=== PATIENT | male | born 1990 | race Caucasian/White ===

== ENCOUNTER 2018-06-24 10:24 | Emergency (ER) | payer OTHER, SELFPAY ==
[2018-06-24 10:25] VITALS: BP 160/101; PULSE 79; RESP 17; TEMP 36.3; O2SAT 100; BMI 25.0
--- NOTE | 2018-06-24 10:45 | EKG12_ITS ---
Test Reason : MEDICAL CLEARANCE Blood Pressure : / mmHG Vent. Rate : 079 BPM Atrial Rate : 079 BPM P-R Int : 150 ms QRS Dur : 098 ms QT Int : 396 ms P-R-T Axes : 059 052 035 degrees QTc Int : 454 ms Normal sinus rhythm with sinus arrhythmia Normal ECG Confirmed by ELVIA ARDON, DELROY ([id number]), makeup editor VALENTÍN CASAREZ ([id number] on 06/29/2018 9:02:48 AM Referred By: AVANI Confirmed By:DELROY GAN MD
--- NOTE | 2018-06-24 10:46 | ED.VISSUMM ---
- ER Visit Summary Date of Service: 06/24/18 Chief Complaint: Manic episode History of Present Illness: The patient is a 28 M who presents from the [facility] center for medical clearance for acute bo. Patient was pink slipped by the crisis counselor Josefa due to bo. Patient has a history of bipolar disorder and recently came off of a depressive episode, now displaying manic traits including flights of idea and hyperattentiveness, agitation. History from patient is limited secondary to him cooperating with history. Physical Examination: Patient is hypertensive, normal heart rate, afebrile, no hypoxia on room air. Awake and alert, hyperattentive and glaring at me. Will not respond appropriately to questions and instead is attempting to interrogate me. Patient has no respiratory distress and is ambulating without difficulty. Physical exam limited secondary to concern for personal safety close to this patient. Test Results: Abnormal Lab Results 06/24/18 06/24/18 06/24/18 11:05 11:05 11:05 WBC 8.2 RBC 4.79 Hgb 14.1 Hct 44.0 MCV 91.9 MCH 29.4 MCHC 32.0 RDW 13.1 RDW Differential 43.5 Plt Count 283 MPV 9.6 Immature Gran % (Auto) 0.100 Neut % (Auto) 64.1 Lymph % (Auto) 26.0 Mingo % (Auto) 8.3 Eos % (Auto) 1.3 Baso % (Auto) 0.2 Absolute Neuts (auto) 5.3 Absolute Lymphs (auto) 2.14 Total Counted Not Reportable Sodium 137 Potassium 3.8 Chloride 102 Carbon Dioxide 26.0 Anion Gap 9 BUN 9 Creatinine 0.93 Estim Creat Clear Calc 133.64 Est GFR (MDRD) Af Amer 125 Est GFR (MDRD) Non-Af 103 BUN/Creatinine Ratio 9.7 L Glucose 98 Calcium 9.2 Total Bilirubin 0.60 AST 20 ALT 26 Alkaline Phosphatase 123 H Total Protein 8.5 H Albumin 4.6 Globulin 3.9 Albumin/Globulin Ratio 1.2 Urine Opiates Screen Urine Methadone Screen Ur Barbiturates Screen Ur Phencyclidine Scrn Ur Amphetamines Screen U Methamphetamin-MDMA U Benzodiazepines Scrn Urine Cocaine Screen U Cannabinoids Screen Ur Drug Screen Comment Ethyl Alcohol 11.0 06/24/18 11:05 WBC RBC Hgb Hct MCV MCH MCHC RDW RDW Differential Plt Count MPV Immature Gran % (Auto) Neut % (Auto) Lymph % (Auto) Mingo % (Auto) Eos % (Auto) Baso % (Auto) Absolute Neuts (auto) Absolute Lymphs (auto) Total Counted Sodium Potassium Chloride Carbon Dioxide Anion Gap BUN Creatinine Estim Creat Clear Calc Est GFR (MDRD) Af Amer Est GFR (MDRD) Non-Af BUN/Creatinine Ratio Glucose Calcium Total Bilirubin AST ALT Alkaline Phosphatase Total Protein Albumin Globulin Albumin/Globulin Ratio Urine Opiates Screen NEGATIVE Urine Methadone Screen NEGATIVE Ur Barbiturates Screen NEGATIVE Ur Phencyclidine Scrn NEGATIVE Ur Amphetamines Screen NEGATIVE U Methamphetamin-MDMA POSITIVE H U Benzodiazepines Scrn POSITIVE H Urine Cocaine Screen NEGATIVE U Cannabinoids Screen POSITIVE H Ur Drug Screen Comment Ethyl Alcohol Emergency Department Course and Treatment: Patient has already been pink slipped by the crisis center. Medical screening exam performed and patient was medically cleared for further psychiatric evaluation. Medical evaluation was positive for positive methamphetamine, benzodiazepines and cannabinoids on tox screen. Otherwise no abnormalities. Patient is being placed by the crisis center to an inpatient psychiatric facility, and final disposition will be pending acceptance by a facility. 1505: Patient was becoming very distressed and pacing around. On reevaluation patient was breathing without any difficulty and began explaining to me why he would not take medication and why he was acting the way he was. His explanation made no sense was tangential and flight of ideas. Because of his level of distress and agitation and also for the protection of staff and other patients in the emergency department, patient was offered medication either injection or pill. He agreed to voluntarily take a pill. He was given Haldol and Ativan p.o., Patient was accepted at [facility]. Transfer is scheduled for this evening. Treatment Plan: [] Disposition: [] Impression: Acute bo and psychosis This note was generated with [employer] software. It may contain incorrect words, spelling, and punctuation that were not noted in review of the chart prior to signing ED Disposition - Plan for ED Patient: Referrals: Carola Dinh DO [Primary Care Provider] -
[2018-06-24 11:13] LABS: Absolute Lymphocyte Count 2.14 X10^3/ul (0.83-4.51); Absolute Neutrophil Count 5.3 X10^3/uL (2.0-7.7); Basophil# 0.02 X10^3/uL; Basophil% 0.2 % (0-1); Eosinophil# 0.11 X10^3/uL; Eosinophils% 1.3 % (0-5); Hemoglobin 14.1 g/dl (13.0-16.5); Lymphocyte # 2.14 X10^3/ul (4.0); Mean Corpuscular Hgb 29.4 pg (27.0-32.0); Mean Corpuscular Volume 91.9 fL (80-94); Mean Platelet Vol. 9.6 fl (6.2-12.0); Monocyte# 0.68 X10^3/uL; Monocyte% 8.3 % (0-10); Neutrophil # 5.26 X10^3/uL (2.7-7.7); Neutrophil % 64.1 % (47-70); Platelet Count 283 K/mm3 (150-450); RBC Distribution Width CV 13.1 % (11.6-14.6); RBC Distribution Width SD 43.5 fl (35.1-43.9); Red Blood Count 4.79 M/mm3 (4.6-6.2); White Blood Count 8.2 K/mm3 (4.4-11.0)
[2018-06-24 11:16] LABS: POSITIVE COUNT NO; POSITIVE DIFFERENTIAL NO; POSITIVE MORPHOLOGY NO
--- NOTE | 2018-06-24 11:16 | CM.ED ---
SOCIAL WORK NOTE UPDATED BY NURSING, CRISIS HAS BEEN CALLED TO EVALUATE PT. DISPOSITION PENDING CRISIS EVAL. VANESSA MONROE, DEVELOPMENT EDUCATOR, TEACHING DIETITIAN.
[2018-06-24 11:25] LABS: Amphetamine Urine VISTA NEGATIVE (<1000 ng/mL); Barbiturate Urine VISTA NEGATIVE (< 200 ng/mL); Benzodiazepine Urine VISTA POSITIVE (< 200 ng/mL); Cocaine Urine VISTA NEGATIVE (< 300 ng/mL); Ecstacy Urine VISTA POSITIVE (< 500 ng/mL); Methadone Urine VISTA NEGATIVE (< 300 ng/mL); PCP Urine VISTA NEGATIVE (< 25 ng/mL); THC Urine VISTA POSITIVE (< 50 ng/mL); Vista UDS pH Range 5
[2018-06-24 11:29] VITALS: RESP 16
[2018-06-24 11:29] LABS: ALB/GLOB Ratio 1.2 RATIO (0.9-2.4); AST(SGOT) 20 U/L (15-37); Alanine Aminotransfer ALT/SGPT 26 U/L (16-61); Albumin, Serum 4.6 g/dL (3.2-5.0); Alkaline Phosphatase 123 U/L (45-117); Anion Gap 9 (5-15); BUN 9 mg/dL (7-18); BUN/Creat Ratio 9.7 RATIO (10-20); Calcium,Total 9.2 mg/dL (8.5-10.1); Chloride 102 mmol/L (98-107); Creatinine, Serum 0.93 mg/dL (0.70-1.30); EST Glomerular Filtration Rate 103 mL/min (>60); Est Glom Filt Rate - Afr Amer 125 mL/min (>60); Estimated Creatinine Clearance 133.64 ml/min; Globulin 3.9 g/dL (2.2-4.2); Glucose 98 mg/dL (74-106); Potassium 3.8 mmol/L (3.5-5.1); Protein, Total 8.5 g/dL (6.4-8.2); Sodium Level 137 mmol/L (136-145)
--- NOTE | 2018-06-24 12:34 | ED.RN ---
SULEMAN KENNEDY SAID JACKELIN WILL BE COMING TO ACCESS THE PATIENT.
[2018-06-24 12:49] VITALS: RESP 16
[2018-06-24] MEDS: LORazepam 1 MG Tablet PO ×2 (15:13)
[2018-06-24] MEDS: Haloperidol 5 MG Tablet PO (15:13)
[2018-06-24 16:57] VITALS: BP 134/76; PULSE 77; RESP 14; O2SAT 97
[2018-06-24 19:32] VITALS: BP 134/76; PULSE 77; RESP 14; O2SAT 97
== END 2018-06-24 19:34 ==
PROVIDERS: Emergency Provider Emergency Medicine
DX: F29 Unspecified psychosis not due to a substance or known physiological condition (principal); F31.9 Bipolar disorder, unspecified; R03.0 Elevated blood-pressure reading, without diagnosis of hypertension
CPT/HCPCS: 80053; 80307; 80320; 85025; 93005; 99284; G0480